=== PATIENT | female | born 1960 | race Caucasian/White ===

== ENCOUNTER 2017-06-09 10:46 | Inpatient (IN) | payer OTHER ==
[~2017-06-09] VITALS: Ht 154.9 cm; Wt 42.6 kg
--- NOTE | ~2017-06-09 | WRIGHTHP ---
[place], [place] PATIENT HISTORY AND PHYSICAL EXAM NAME: GALILEO ANAND [facility] #: [id number] UNIT #: [id number] ROOM: [facility] DOCTOR: LEONOR DESOUZAJANET BIRTHDATE: [birth year] DOS: HISTORY OF PRESENT ILLNESS: The patient comes in to the Emergency Room with complaints of abdominal pain, nausea and emesis. She denied having any chest pains, palpitations, does not have any fever or chills. Pain is all across the abdomen, does not have any urinary symptoms or diarrhea. Has been nauseous and has been sick in her stomach and has had multiple emesis before she arrived at the Emergency Room. She was evaluated in the ER, routine blood work, and x-rays were all negative. A CT scan was also negative. She was placed for admission with IV fluids and IV antibiotics. After admission, the patient has not had any complaints other than some headaches and neck pains. PAST MEDICAL HISTORY: Significant for generalized anxiety disorder. MEDICATIONS: Valium and Protonix daily. SOCIAL HISTORY: Nonsmoker. PHYSICAL EXAMINATION: GENERAL: The patient is awake, alert, and oriented. VITAL SIGNS: Graphic trend shows pressure 125/71, pulse of 72, respirations 19, temperature 98.0. LUNGS: Diminished breath sounds. No wheezes, rales or rhonchi heard. HEART: Regular. ABDOMEN: Soft, nontender. EXTREMITIES: Without any edema. LABORATORY DATA: The patient has normal white cell count. On admission 4.6, hemoglobin and hematocrit were normal, platelets were normal. Comprehensive within normal limits. Lipase and amylase were normal. CT of the abdomen and pelvis was also normal. ASSESSMENT AND PLAN: 1. Abdominal pain with diarrhea, nausea, emesis, most likely flu-like a viral syndrome, even though flu titer was negative. The patient's son who is 17 years old, had a positive fluid and she may have contracted the illness from him. The patient's urine was sent for culture and urine culture has come back negative. The patient is stable. The plan is to discharge her to home today. Follow up with Dr. Dumont as an outpatient. 2. Generalized anxiety disorder, already on medication. The patient is encouraged to have an endoscopy and colonoscopy done as an outpatient. [place], [place] PATIENT HISTORY AND PHYSICAL EXAM NAME: GALILEO ANAND UNIT #: [id number] ROOM: [facility] DOCTOR: JANET GALVEZ MD BIRTHDATE: [birth year] JANET GALVEZ MD [facility]IENT HISTORY AND PHYSICAL EXAMINATION [id number] JANET GALVEZ MD 06/10/17 0954 interface
[~2017-06-09 10:46] MED LIST: BACTRIM DS 8001 TA1 PO; CIPROFLOXACIN500 MG PO; CLARITIN10 MG PO; FLOMAX0.4 MG PO; LEVAQUIN750 MG PO; MEDROL DOSEPAK4 MG PO; MIDRIN (DURADR1 CAP PO; MOTRIN400 MG PO; MOTRIN800 MG PO; NASACORT55 MCG/ACT NS; PHENERGAN25 M3 PO; PREDNICOT20 MG PO; PRILOSEC20 MG PO; ULTRAM50 MG PO; ZITHROMAX Z PA250 MG PO; ZOFRAN ODT4 MG SL; Zofran4 MG PO
[2017-06-09 10:59] VITALS: BP 134/71
[2017-06-09 11:19] LABS: BASO % 0.2 % (0.0-1.0); HEMATOCRIT 39.9 % (37.0-47.0); HEMOGLOBIN 13.6 g/dl (12.0-16.0); LYMPH # 0.8 10*3/uL (1.3-4.4); LYMPH % 18.4 % (27.0-41.0); MEAN CELL VOLUME 86.7 fl (81.0-99.0); MEAN CORPUSCULAR HGB 29.6 pg (27.0-31.0); MEAN CORPUSCULAR HGB CONC 34.1 g/dl (33.0-37.0); MEAN PLATELET VOLUME 12.3 fl (9.6-12.3); MONO # 0.4 10*3/uL (0.1-1.0); MONO % 9.2 % (3.0-9.0); NEUT # 3.3 10*3/uL (2.3-7.9); PLATELET COUNT AUTOMATED 156 10*3/uL (130-400); WHITE BLOOD COUNT 4.6 10*3/uL (4.8-10.8)
[2017-06-09 11:40] LABS: ALBUMIN 4.1 gm/dl (3.1-4.5); ALKALINE PHOSPHATASE 71 U/L (45-117); BUN 14 mg/dl (7-24); CHLORIDE 103 mmol/L (98-107); POTASSIUM 3.9 mmol/L (3.5-5.1); SGOT/AST 32 IU/L (3-35); SGPT/ALT 22 U/L (12-78); SODIUM 139 mmol/L (136-145); TOTAL PROTEIN 7.8 gm/dL (6.4-8.2)
[2017-06-09 11:45] VITALS: BP 131/83
[2017-06-09 13:19] LABS: BILIRUBIN NEGATIVE (NEGATIVE); BLOOD TRACE-INTACT (NEGATIVE); CLARITY CLEAR (CLEAR); COLOR YELLOW (YELLOW); GLUCOSE NEGATIVE (NEGATIVE); KETONE 2+ (NEGATIVE); LEUKO ESTERASE NEGATIVE (NEGATIVE); NITRITE NEGATIVE (NEGATIVE); UROBILINOGEN 0.2 E.U./dl (0.2-1.0)
[2017-06-09 13:31] LABS: BACTERIA 1+
[2017-06-09 15:48] VITALS: BP 117/73
[2017-06-09 16:14] VITALS: BP 136/67
[2017-06-09] MEDS ORDERED: VALIUM10 MG PO (16:33)
[2017-06-09] MEDS ORDERED: PREVACID30 M2 PO (16:33)
[2017-06-09 20:00] VITALS: BP 111/70
[2017-06-10] VITALS: BP 117/64
[2017-06-10 08:00] VITALS: BP 125/71
[2017-06-10] MEDS ORDERED: ZOFRAN8 M1 PO (09:30)
== END 2017-06-10 12:20 | disposition home or self-care (01) | DRG 866 ==
LOC: ED 10:46 → 5E 14:51 → EDHOLD 14:51 → 5E 15:02
PROVIDERS: Emergency Medicine
DX: B34.9 Viral infection, unspecified (principal); F41.1 Generalized anxiety disorder; Z88.0 Allergy status to penicillin; Z88.5 Allergy status to narcotic agent; Z88.6 Allergy status to analgesic agent; Z88.8 Allergy status to other drugs, medicaments and biological substances; Z79.899 Other long term (current) drug therapy; Z82.49 Family history of ischemic heart disease and other diseases of the circulatory system; Z83.3 Family history of diabetes mellitus; Z80.9 Family history of malignant neoplasm, unspecified

== ENCOUNTER 2020-05-15 17:35 | Emergency (ER) | payer OTHER ==
[~2020-05-15] VITALS: Ht 157.4 cm; Wt 52.2 kg
[~2020-05-15 17:35] MED LIST changes: +PREVACID30 M2 PO; +VALIUM10 MG PO; +ZOFRAN8 M1 PO
[2020-05-15 17:49] VITALS: BP 176/68
[2020-05-15 19:26] LABS: BASO % 0.3 % (0.0-1.0); EOS # 0.2 10*3/uL (0.0-0.4); EOS % 1.4 % (1.0-4.0); LYMPH # 1.6 10*3/uL (1.3-4.4); LYMPH % 13.5 % (27.0-41.0); MEAN CELL VOLUME 89.8 fl (81.0-99.0); MEAN CORPUSCULAR HGB 29.1 pg (27.0-31.0); MEAN CORPUSCULAR HGB CONC 32.4 g/dl (33.0-37.0); MEAN PLATELET VOLUME 11.1 fl (9.6-12.3); MONO # 0.8 10*3/uL (0.1-1.0); MONO % 6.4 % (3.0-9.0); NEUT # 9.2 10*3/uL (2.3-7.9); NEUT % 78.1 % (47.0-73.0); PLATELET COUNT AUTOMATED 265 10*3/uL (130-400); RED BLOOD COUNT 4.23 10*6/uL (4.10-5.10); RED CELL DISTRI WIDTH 14.8 % (0-14.5); WHITE BLOOD COUNT 11.8 10*3/uL (4.8-10.8)
[2020-05-15 19:43] LABS: ALKALINE PHOSPHATASE 71 U/L (45-117); BUN 16 mg/dl (7-24); CHLORIDE 108 mmol/L (98-107); CREATININE 0.88 mg/dL (0.55-1.02); POTASSIUM 3.8 mmol/L (3.5-5.1); SGOT/AST 16 IU/L (3-35); SGPT/ALT 22 U/L (12-78); SODIUM 140 mmol/L (136-145)
[2020-05-15] MEDS ORDERED: CLEOCIN HCL300 MG PO (21:51)
[2020-05-15] MEDS ORDERED: ZOFRAN4 MG PO (22:00)
== END 2020-05-15 22:06 | disposition home or self-care (01) ==
LOC: ED 17:35
PROVIDERS: Student in an Organized Health Care Education/Training Program
DX: K04.7 Periapical abscess without sinus (principal); F41.9 Anxiety disorder, unspecified; F32.9 Major depressive disorder, single episode, unspecified; K21.9 Gastro-esophageal reflux disease without esophagitis; Z88.0 Allergy status to penicillin; Z88.6 Allergy status to analgesic agent; Z88.5 Allergy status to narcotic agent; Z88.8 Allergy status to other drugs, medicaments and biological substances; Z79.899 Other long term (current) drug therapy; Z87.442 Personal history of urinary calculi

== ENCOUNTER → 2021-05-22 | Outpatient (CLI) | payer OTHER ==
[~2021-05-22] MED LIST changes: +CLEOCIN HCL300 MG PO; +ZOFRAN4 MG PO
[2021-05-22 11:38] LABS: HEMATOCRIT 42.2 % (37.0-47.0); MEAN CELL VOLUME 88.7 fl (81.0-99.0); MEAN CORPUSCULAR HGB 29.6 pg (27.0-31.0); MEAN CORPUSCULAR HGB CONC 33.4 g/dl (33.0-37.0); MEAN PLATELET VOLUME 10.8 fl (9.6-12.3); RED BLOOD COUNT 4.76 10*6/uL (4.10-5.10); RED CELL DISTRI WIDTH 14.1 % (0-14.5); WHITE BLOOD COUNT 8.3 10*3/uL (4.8-10.8)
[2021-05-22 12:46] LABS: CHLORIDE 105 mmol/L (98-107); POTASSIUM 3.3 mmol/L (3.5-5.1); SODIUM 140 mmol/L (136-145)
[2021-05-22 12:54] LABS: ALBUMIN 4.6 gm/dl (3.1-4.5); ALKALINE PHOSPHATASE 79 U/L (45-117); BUN 19 mg/dl (7-24); CHOLESTEROL 211 mg/dL (<200); CREATININE 0.94 mg/dL (0.55-1.02); LDL CHOLESTEROL 140 mg/dL (9-159); SGOT/AST 24 IU/L (3-35); SGPT/ALT 21 U/L (12-78); TOTAL PROTEIN 9.3 gm/dL (6.4-8.2); TRIGLYCERIDES 114 mg/dl (<150)
[2021-05-22 12:58] LABS: VITAMIN D, 25-HYDROXY 9.3 ng/mL (30-100)
== END | disposition home or self-care (01) ==
LOC: LAB 11:20
PROVIDERS: ATTEND Family Medicine
DX: Z00.00 Encounter for general adult medical examination without abnormal findings (principal); E78.00 Pure hypercholesterolemia, unspecified; K21.9 Gastro-esophageal reflux disease without esophagitis; R53.83 Other fatigue

== ENCOUNTER → 2021-08-17 | Outpatient (CLI) | payer OTHER | END | disposition home or self-care (01) | LOC: MRI 06-11 10:00 | PROVIDERS: ATTEND Family Medicine | DX: I67.89 Other cerebrovascular disease (principal); I63.9 Cerebral infarction, unspecified; J34.81 Nasal mucositis (ulcerative) ==

== ENCOUNTER 2024-02-20 15:53 | Emergency (ER) | payer OTHER ==
[~2024-02-20] VITALS: Ht 152.4 cm; Wt 45.8 kg
[2024-02-20 16:06] VITALS: BP 169/91
[2024-02-20] MEDS ORDERED: methylPREDNISolone sod succ 125 MG VIAL IM ONE (16:20)
[2024-02-20] MEDS ORDERED: Albuterol Sulf/Ipratropium 3 ML VIAL NEB ONE (16:20)
[2024-02-20 16:35] LABS: BASO # 0.1 10*3/uL (0.0-0.1); BASO % 0.8 % (0.0-1.0); EOS # 0.5 10*3/uL (0.0-0.4); EOS % 5.9 % (1.0-4.0); HEMATOCRIT 43.4 % (37.0-47.0); LYMPH # 1.8 10*3/uL (1.3-4.4); LYMPH % 20.1 % (27.0-41.0); MEAN CELL VOLUME 91.4 fl (81.0-99.0); MEAN CORPUSCULAR HGB 29.7 pg (27.0-31.0); MEAN CORPUSCULAR HGB CONC 32.5 g/dl (33.0-37.0); MEAN PLATELET VOLUME 10.7 fl (9.6-12.3); MONO # 0.6 10*3/uL (0.1-1.0); MONO % 6.8 % (3.0-9.0); NEUT # 5.8 10*3/uL (2.3-7.9); NEUT % 66.2 % (47.0-73.0); PLATELET COUNT AUTOMATED 306 10*3/uL (130-400); RED BLOOD COUNT 4.75 10*6/uL (4.10-5.10); RED CELL DISTRI WIDTH 14.1 % (0-14.5); WHITE BLOOD COUNT 8.8 10*3/uL (4.8-10.8)
[2024-02-20 16:57] LABS: POTASSIUM 3.7 mmol/L (3.4-5.1)
[2024-02-20] MEDS ORDERED: PREDNISONE50 MG PO (17:58)
== END 2024-02-20 18:04 | disposition home or self-care (01) ==
LOC: ED 15:53
PROVIDERS: Physician Assistant Medical
DX: J98.4 Other disorders of lung (principal); Z20.822 Contact with and (suspected) exposure to COVID-19; F41.9 Anxiety disorder, unspecified; F32.A Depression, unspecified; K21.9 Gastro-esophageal reflux disease without esophagitis; D64.9 Anemia, unspecified; Z87.442 Personal history of urinary calculi; Z88.0 Allergy status to penicillin; Z88.1 Allergy status to other antibiotic agents; Z88.5 Allergy status to narcotic agent; Z88.6 Allergy status to analgesic agent; Z88.8 Allergy status to other drugs, medicaments and biological substances; Z98.890 Other specified postprocedural states

== ENCOUNTER 2024-11-04 16:55 | Emergency (ER) | payer OTHER ==
[~2024-11-04] VITALS: Ht 152.4 cm; Wt 49.9 kg
[~2024-11-04 16:55] MED LIST changes: +PREDNISONE50 MG PO
[2024-11-04 18:05] VITALS: BP 181/99
[2024-11-04] MEDS ORDERED: diphenhydrAMINE hydrochloride 50 MG/ML VIAL IV ONE (19:10)
[2024-11-04] MEDS ORDERED: Metoclopramide Hydrochloride 10 MG/2 ML VIAL IV ONE (19:10)
[2024-11-04] MEDS ORDERED: SODIUM CHLORIDE 0.9% 1,000 ML IV ONE (19:10)
[2024-11-04 19:21] LABS: BASO # 0.1 10*3/uL (0.0-0.1); BASO % 0.8 % (0.0-1.0); EOS # 0.2 10*3/uL (0.0-0.4); EOS % 2.9 % (1.0-4.0); MEAN CELL VOLUME 92.4 fl (81.0-99.0); MEAN CORPUSCULAR HGB 29.9 pg (27.0-31.0); MEAN PLATELET VOLUME 10.8 fl (9.6-12.3); MONO # 0.5 10*3/uL (0.1-1.0); MONO % 6.6 % (3.0-9.0); NEUT # 4.7 10*3/uL (2.3-7.9); NEUT % 59.5 % (47.0-73.0); NUCLEATED RED BLOOD CELL 0.0 % (0.0-0.0); NUCLEATED RED BLOOD CELL 0.0 10*3/uL (0.0-0.0); PLATELET COUNT AUTOMATED 297 10*3/uL (130-400); RED CELL DISTRI WIDTH 14.2 % (0-14.5)
[2024-11-04 20:22] LABS: BUN 17 mg/dl (9-23)
[2024-11-04] MEDS ORDERED: ZITHROMAX250 MG PO (20:54)
[2024-11-04] MEDS ORDERED: AZITHROMYCIN 250 MG TAB PO ONE (20:55)
== END 2024-11-04 21:05 | disposition home or self-care (01) ==
LOC: ED 16:55
PROVIDERS: Nurse Practitioner Family
DX: J32.9 Chronic sinusitis, unspecified (principal); K21.9 Gastro-esophageal reflux disease without esophagitis; F32.A Depression, unspecified; F41.9 Anxiety disorder, unspecified; Z79.899 Other long term (current) drug therapy; Z88.0 Allergy status to penicillin; Z88.1 Allergy status to other antibiotic agents; Z88.5 Allergy status to narcotic agent; Z88.8 Allergy status to other drugs, medicaments and biological substances; Z98.890 Other specified postprocedural states

== ENCOUNTER → 2024-11-18 | Outpatient (CLI) | payer OTHER ==
[~2024-11-18] MED LIST changes: +ZITHROMAX250 MG PO
[2024-11-18 16:49] LABS: MEAN CELL VOLUME 94.2 fl (81.0-99.0); MEAN CORPUSCULAR HGB 30.2 pg (27.0-31.0); MEAN PLATELET VOLUME 10.3 fl (9.6-12.3); NUCLEATED RED BLOOD CELL 0.0 % (0.0-0.0); NUCLEATED RED BLOOD CELL 0.0 10*3/uL (0.0-0.0); PLATELET COUNT AUTOMATED 315.0 10*3/uL (130-400); RED CELL DISTRI WIDTH 14.2 % (0-14.5)
[2024-11-18 17:38] LABS: BUN 18.0 mg/dl (9-23); CPK 185.0 U/L (34-171); FREE T4 0.66 ng/dl (0.89-1.76); LDL CHOLESTEROL 133.0 mg/dL (9-159); SGPT/ALT 12.0 U/L (5-49); VITAMIN D, 25-HYDROXY 10.4 ng/mL (30-100)
== END | disposition home or self-care (01) ==
LOC: LAB 16:31
PROVIDERS: ATTEND Family Medicine
DX: J44.9 Chronic obstructive pulmonary disease, unspecified (principal); M47.812 Spondylosis without myelopathy or radiculopathy, cervical region; M48.02 Spinal stenosis, cervical region; J98.4 Other disorders of lung; R06.02 Shortness of breath; E55.9 Vitamin D deficiency, unspecified; M79.10 Myalgia, unspecified site; M54.2 Cervicalgia; I10 Essential (primary) hypertension; R63.4 Abnormal weight loss; R53.83 Other fatigue